=== PATIENT | female | born 1955 | race Hispanic/Latino ===

== ENCOUNTER 2021-09-18 14:17 | Emergency (ER) | payer OTHER ==
[2021-09-18] MEDS ORDERED: HYDROCODONE/APAP 10/325 TAB ONE (14:54)
--- NOTE | 2021-09-18 15:56 | RAD REPORT ---
EXAM DESCRIPTION: RAD - Forearm Left - 09/18/2021 3:11 pm CLINICAL HISTORY: PAIN COMPARISON: No comparisons FINDINGS/IMPRESSION: Impacted distal radial fracture with intra-articular extension. Dorsal displace ment of the distal fragment is noted with slight overriding. The fracture is mildly comminuted. Ulnar styloid fracture noted as well. No dislocation of the wrist.
[2021-09-18] MEDS ORDERED: KETOROLAC 30 MG/ML INJ ONE (17:12)
--- NOTE | 2021-09-18 17:24 | EDPHYS ---
Physician Documentation [facility] Name: Rosalva Rome Age: 65 yrs Sex: Female : 1955 Arrival Date: 09/18/2021 Time: 14:18 Bed 10 Private MD: ED Physician Philip Cameron HPI: 09/18 17:20 This 65 yrs old Female presents to ER via Ambulatory with complaints of Fall kb Injury, Wrist Injury. 17:20 Details of fall: The patient fell from an upright position, while walking. Onset: The kb symptoms/episode began/occurred today. Associated injuries: The patient sustained left wrist, decreased range of motion, deformity, painful injury, swelling. Severity of symptoms: At their worst the symptoms were moderate, in the emergency department the symptoms are unchanged. The patient has not experienced similar symptoms in the past. The patient has not recently seen a physician. 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 Reports pain to left wrist with swelling. Historical: - Allergies: 14:26 No Known Allergies; ll1 - PMHx: 14:26 Hypertensive disorder; ll1 - PSHx: 14:26 None; ll1 - Immunization history:: Client reports receiving the 2nd dose of the Covid vaccine. - Social history:: Smoking status: Patient denies any tobacco usage or history of. ROS: 17:19 Constitutional: Negative for fever, chills, and weight loss. kb 17:19 MS/extremity: Positive for injury or acute deformity, decreased range of motion, pain, swelling, tenderness, of the left wrist. 17:19 All other systems are negative. Exam: 17:19 Constitutional: This is a well developed, well nourished patient who is awake, alert, kb and in no acute distress. Head/Face: Normocephalic, atraumatic. ENT: Moist Mucous membranes Respiratory: Respirations even and unlabored. No increased work of breathing. Talking in full sentences Skin: Warm, dry with normal turgor. Normal color. Neuro: Awake and alert, GCS 15, oriented to person, place, time, and situation. Moves all extremities. Normal gait. Psych: Awake, alert, with orientation to person, place and time. Behavior, mood, and affect are within normal limits. 17:19 Musculoskeletal/extremity: Extremities: grossly normal except: noted in the left wrist: decreased ROM, deformity, pain, swelling, tenderness, ROM: limited active range of motion due to pain, in the left wrist, Circulation is intact in all extremities. Sensation intact. Vital Signs: 14:25 BP 155 / 93; Pulse 81; Resp 17; Temp 97.7; Pulse Ox 99% ; Weight 81.19 kg; Height 5 ft. ll1 2 in. (157.48 cm); Pain 10/10; 17:37 BP 128 / 63; Pulse 78; Resp 16; Pulse Ox 99% on R/A; ic1 14:25 Body Mass Index 32.74 (81.19 kg, 157.48 cm) ll1 [place] Coma Score: 14:49 Eye Response: spontaneous(4). Verbal Response: oriented(5). Motor Response: obeys ic1 commands(6). Total: 15. Trauma Score (Adult): 14:49 Eye Response: spontaneous(1); Verbal Response: oriented(1); Motor Response: obeys ic1 commands(2); Systolic BP: > 89 mm Hg(4); Respiratory Rate: 10 to 29 per min(4); [place] Score: 15; Trauma Score: 12 Procedures: 17:54 Splinting: Splint applied to left arm using Orthoglass splint, applied by nurse. kb Examined by me, post splint application: neurovascular intact, 2+ distal pulses palpable, brisk capillary refill noted, Patient tolerated well. MDM: 14:39 Patient medically screened. kb 17:12 Data reviewed: vital signs, nurses notes. Data interpreted: Pulse oximetry: on room air kb is 99 %. Interpretation: normal. Counseling: I had a detailed discussion with the patient and/or guardian regarding: the historical points, exam findings, and any diagnostic results supporting the discharge/admit diagnosis, radiology results, the need for outpatient follow up, a orthopedic surgeon, to return to the emergency department if symptoms worsen or persist or if there are any questions or concerns that arise at home. Physician consultation: Pratik Camacho MD was contacted at 17:12, regarding patient's condition, recommends splint and outpatient follow up . 17:18 ED course: Pt educated to call ortho on Tuesday to schedule appt for follow up. . kb 17:25 ED course: HEARING AID CONSULTANT aware reviewed. No active RX. kb 17:49 ED course: Neurovascular intact, moving all fingers. kb 09/18 14:38 Order name: Forearm Left XRAY; Complete Time: 16:00 kb 09/18 17:12 Order name: Sugar Tong Forearm Splint; Complete Time: 18:01 kb 09/18 17:12 Order name: Sling; Complete Time: 18:01 kb Administered Medications: 14:51 Drug: Elton (HYDROcodone-acetaminophen) 10 mg-325 mg 1 tabs Route: PO; ic1 15:41 Follow up: Response: Pain is decreased ic1 17:16 Drug: Ketorolac 60 mg Route: IM; Site: left gluteus; ic1 Disposition Summary: 09/18/21 17:23 Discharge Ordered Location: Home kb Condition: Stable kb Diagnosis - Impacted left radial fracture kb - Ulnar styloid fracture - left kb Followup: kb - With: Emergency Department - When: As needed - Reason: Worsening of condition Followup: kb - With: Private Physician - When: 2 - 3 days - Reason: Recheck today's complaints, Continuance of care, Re-evaluation by your physician Discharge Instructions: - Discharge Summary Sheet kb - Radial Fracture kb - Ulnar Fracture kb Forms: - Medication Reconciliation Form kb - Thank You Letter kb - Antibiotic Education kb - Prescription Opioid Use kb - Family Work Release eb Prescriptions: - Ibuprofen 800 mg Oral Tablet - take 1 tablet by ORAL route every 8 hours As needed take with food; 30 tablet; kb Refills: 0, Product Selection Permitted - Tylenol-Codeine #3 300 mg-30 mg Oral - take 1 tablet by ORAL route every 4-6 hours As needed; 15 tablet; Refills: 0, kb Product Selection Permitted Addendum: 09/20/2021 07:09 Co-signature as Attending Physician, Philip Cameron MD I agree with the assessment and c lozada plan of care. Signatures: Dispatcher [employer] Yoanna Zimmerman, LEAD MANUFACTURING ENGINEERING TECH-C LEAD MANUFACTURING ENGINEERING TECH-Philip Hubbard MD MD cha Lewis, Lynsay, RN RN ll1 Sheri Hodge RN RN ic1
--- NOTE | 2021-09-18 17:24 | ER ---
Nurse's Notes [facility] Name: Rosalva Rome Age: 65 yrs Sex: Female : 1955 Arrival Date: 09/18/2021 Time: 14:18 Bed 10 Private MD: Diagnosis: Impacted left radial fracture;Ulnar styloid fracture - left Presentation: 09/18 14:25 Chief complaint: Patient states: L FA deformity, s/p fall today. Coronavirus screen: ll1 Vaccine status: Patient reports receiving the 2nd dose of the covid vaccine. Client denies travel out of the [place] in the last 14 days. At this time, the client does not indicate any symptoms associated with coronavirus-19. Ebola Screen: Patient denies travel to an Ebola-affected area in the 21 days before illness onset. Initial Sepsis Screen: Does the patient meet any 2 criteria? No. Patient's initial sepsis screen is negative. Does the patient have a suspected source of infection? Yes: Bone or joint infection. Initial Sepsis Screen: Does the patient meet any 2 criteria?. Risk Assessment: Do you want to hurt yourself or someone else? Patient reports no desire to harm self or others. Onset of symptoms was September 18, 2021. 14:25 Method Of Arrival: Ambulatory ll1 14:25 Acuity: YOEL 3 ll1 Historical: - Allergies: 14:26 No Known Allergies; ll1 - PMHx: 14:26 Hypertensive disorder; ll1 - PSHx: 14:26 None; ll1 - Immunization history:: Client reports receiving the 2nd dose of the Covid vaccine. - Social history:: Smoking status: Patient denies any tobacco usage or history of. Screenin:49 Abuse screen: Denies threats or abuse. Denies injuries from another. Tuberculosis ic1 screening: No symptoms or risk factors identified. Fall risk At risk due to prior history of falls. Exposure risk/Travel Screening: None identified. Primary Survey: 14:49 NO uncontrolled hemorrhage observed. A: The patient is alert. Airway: patent. ic1 Breathing/Chest: Respiratory pattern: regular, Respiratory effort: spontaneous, unlabored, Chest inspection: symmetrical rise and fall of the chest. Circulation: Pulses: palpable right radial artery and left radial artery. Skin color: pink. Disability Alert. Exposure/Environment: There is no evidence of uncontrolled external bleeding. Obvious injury(ies) are noted at this time: L forearm deformity and swelling noted. Secondary Survey: 14:49 HEENT: No deficits noted. Gastrointestinal: No deficits noted. : No deficits noted. ic1 Musculoskeletal: No deficits noted. Assessment: 14:48 General: Appears in no apparent distress. uncomfortable, Behavior is calm, cooperative. ic1 Pain: Complains of pain in left arm. Neuro: No deficits noted. EENT: No deficits noted. Cardiovascular: No deficits noted. Respiratory: No deficits noted. GI: No deficits noted. : No deficits noted. Derm: No deficits noted. Musculoskeletal: Circulation, motion, and sensation intact. Capillary refill < 3 seconds, Range of motion: limited in left elbow and left wrist Swelling present in left arm Tenderness present in left arm. Vital Signs: 14:25 BP 155 / 93; Pulse 81; Resp 17; Temp 97.7; Pulse Ox 99% ; Weight 81.19 kg; Height 5 ft. ll1 2 in. (157.48 cm); Pain 10/10; 17:37 BP 128 / 63; Pulse 78; Resp 16; Pulse Ox 99% on R/A; ic1 14:25 Body Mass Index 32.74 (81.19 kg, 157.48 cm) ll1 [place] Coma Score: 14:49 Eye Response: spontaneous(4). Verbal Response: oriented(5). Motor Response: obeys ic1 commands(6). Total: 15. Trauma Score (Adult): 14:49 Eye Response: spontaneous(1); Verbal Response: oriented(1); Motor Response: obeys ic1 commands(2); Systolic BP: > 89 mm Hg(4); Respiratory Rate: 10 to 29 per min(4); [place] Score: 15; Trauma Score: 12 ED Course: 14:18 Patient arrived in ED. am2 14:26 Triage completed. ll1 14:26 Arm band placed on Patient placed in an exam room, on a stretcher. ll1 14:38 Yoanna Narvaez FNP-C [facility]. kb 14:38 Philip Cameron MD is Attending Physician. kb 14:49 Patient has correct armband on for positive identification. Bed in low position. Call ic1 light in reach. Adult w/ patient. 14:49 Patient maintains SpO2 saturation greater than 95% on room air. ic1 15:11 Forearm Left XRAY In Process Unspecified. EDMS 15:41 Sheri Hodge, RN is Primary Nurse. ic1 17:58 Orthoglass splint: Sugar tong splint applied on left arm. tolerated well. ll1 Administered Medications: 14:51 Drug: Oriska (HYDROcodone-acetaminophen) 10 mg-325 mg 1 tabs Route: PO; ic1 15:41 Follow up: Response: Pain is decreased ic1 17:16 Drug: Ketorolac 60 mg Route: IM; Site: left gluteus; ic1 Outcome: 17:23 Discharge ordered by . garima 18:02 Discharged to home ambulatory, with family. ic1 18:02 Condition: stable 18:02 Discharge instructions given to patient, family, Instructed on discharge instructions, follow up and referral plans. Demonstrated understanding of instructions, follow-up care, medications, Prescriptions given X 2. 18:03 Patient's length of stay in the Emergency Department was greater than 2 hours. ic1 Patient's length of stay was extended due to staffing issues within the emergency department. 18:03 Patient left the ED. ic1 Signatures: Dispatcher [employer] EDSD Yoanna Narvaez, DIRECT MARKETING COORDINATOR-C DIRECT MARKETING COORDINATOR-CkKeyonna Solorio am2 Eleanor Yun, RN RN ll1 Sheri Hodge, KIRILL RN ic1 Corrections: (The following items were deleted from the chart) 14:27 14:25 Pulse 81bpm; Resp 17bpm; Pulse Ox 99%; Temp 97.7F; 81.19 kg; Height 5 ft. 2 in.; ll1 BMI: 32.7; Pain 10/10; ll1
[2021-09-18 18:15] VITALS: TEMP 97.7; O2SAT 99
[2021-09-18 18:16] VITALS: BP 128/63
== END 2021-09-18 18:03 | disposition home or self-care (01) ==
LOC: ER 14:17
PROC: 2W3DX1Z Immobilization of Left Lower Arm using Splint (ICD-10-PCS; principal; 2021-09-18)
DX: S52.92XA Unspecified fracture of left forearm, initial encounter for closed fracture (principal); S52.612A Displaced fracture of left ulna styloid process, initial encounter for closed fracture; W01.0XXA Fall on same level from slipping, tripping and stumbling without subsequent striking against object, initial encounter; I10 Essential (primary) hypertension
CPT/HCPCS: 96372; 99284

== ENCOUNTER 2021-09-29 06:23 | Day surgery (SDC) | payer OTHER ==
[2021-09-25 12:17] LABS: Absolute Lymphocytes (CBC) 1.7 K/uL (0.7-4.9); Hematocrit 41.6 % (36.0-45.0); Lymphocytes % 30.5 % (15.3-44.8); RBC Red Blood Cell Count 4.86 M/uL (3.86-4.86)
[2021-09-28 09:42] LABS: BUN Blood Urea Nitrogen 15 mg/dL (7-18); Bicarbonate 22 mmol/L (21-32); Glucose Level 107 mg/dL (74-106); Potassium 3.9 mmol/L (3.5-5.1); Sodium Level 142 mmol/L (136-145)
[2021-09-29] MEDS ORDERED: Ringers Lactate 1,000 ML IV ONE ×2 (06:46→09:23)
[2021-09-29] MEDS ORDERED: CEFAZOLIN/NS 1gm 1 GM/50 ML BAG ONE (06:46)
[2021-09-29] MEDS ORDERED: FENTANYL CITR 100 MCG/2 ML ONE ×2 (07:10→10:14)
[2021-09-29] MEDS ORDERED: propofoL 200 MG/20 ML VIAL IV ONE (07:10)
[2021-09-29] MEDS ORDERED: MIDAZOLAM HCL 2 MG/2 ML INJ ONE (07:10)
[2021-09-29] MEDS ORDERED: dexAMETHasone 10 MG/ML VIAL ONE (07:11)
[2021-09-29] MEDS ORDERED: ONDANSETRON 4 MG/2 ML VIAL ONE (07:11)
[2021-09-29] MEDS ORDERED: KETOROLAC 30 MG/ML INJ ONE (07:11)
[2021-09-29] MEDS ORDERED: LIDOCAINE 1% MPF 30 ML VIAL ONE (07:11)
[2021-09-29] MEDS ORDERED: NS 0.9% VIAL 10 ML ONE (07:54)
[2021-09-29] MEDS ORDERED: KETAMINE HCL 500 MG/5 ML VIAL ONE (07:57)
[2021-09-29] MEDS: HYDROMORPHONE HCL 1 MG/ML INJ ONE ×4 (09:25→10:00)
[2021-09-29] MEDS ORDERED: PROMETHAZINE INJ 25 MG/ML AMP ONE (09:41)
[2021-09-29 09:49] VITALS: TEMP 97
--- NOTE | 2021-09-29 09:53 | RAD REPORT ---
EXAM DESCRIPTION: RAD - Fluoroscopy <1 Hour - 09/29/2021 9:36 am CLINICAL HISTORY: ORIF INTRA-ARTICULAR DISTAL RADIUS LEFT COMPARISON: No comparisons FINDINGS/IMPRESSION: Twenty intraoperative fluoroscopic images were submitted showing open reduction with plate and screw fixation of a known distal radial fracture. Dose: 1.36 charla Chauncye Fluoro time: 1 minutes
[2021-09-29 10:58] VITALS: BP 158/75; O2SAT 97
[2021-09-29] MEDS ORDERED: HYDROCODONE/APAP 7.5/325 MG TAB ONE (11:04)
--- NOTE | 2021-09-29 12:19 | OP ---
Date of Procedure: 09/29/2021 Surgeon: Pratik Camacho MD Preoperative Diagnosis: Left wrist comminuted intra-articular fracture of distal radius with median nerve paresthesias. Postoperative Diagnosis: Left wrist comminuted intra-articular fracture of distal radius with median nerve paresthesias. Procedures: 1.Left open reduction and internal fixation of comminuted intra-articular distal radius fracture wit h 3 intra-articular fragments. 2.Open carpal tunnel release. Estimated Blood Loss: Less than 10 cc. Complications: There were no complications. Pathology Specimen: No pathology specimen sent. Indications For Operation: Ms. Rome is a 65-year-old female, who unfortunately injured her left upper extremity. She saw me in my office sometime after she had fallen. X-rays demonstrated a comm inuted intra-articular highly displaced distal radius fracture. On physical examination, she had no sign of an open injury or pain at the elbow; however, she did have numbness and tingling of her long and ring fingers. She did have feeling with palpations, although she said that it felt that it was s leepy and somewhat tingly. Her thumb and index are not significantly involved. Therefore, decision was made not to move emergently, but moved emergently for this case and risks, benefits, and alternat alice of this procedure have been discussed with her. Also, we do have an external fixator available as well as other possible fixation in case this is not amenable to plate fixation. The patient agree s to proceed. Description Of Procedure: The patient was taken to the operating room and placed in supine position. General anesthesia was obtained by staff. Following this, a well-padded tourniquet was placed on s uperior left arm. The left upper extremity was then prepped and draped usual fashion procedure. Fol lowing this, the arm was then elevated, but not exsanguinated. Tourniquet was raised. A standard vo lar approach of incision was then taken down carefully through skin with only meticulous hemostasis b eing maintained using bipolar electrocautery. This leads down to the flexor carpi radialis, which wa s retracted radialward to protect the radial artery. Also seen, there was a much more prominent posi tion of the median nerve, which also appeared to be somewhat contused. It appeared to be lying direc tly upon a large fragment volar cortical bone, which had basically been flipped 90 degrees and also l ooked like it may have healed down to this slightly. Very very careful dissection was then used to r emove this cortical piece from the overlying soft tissues until it was mobile. Decision was made to take the flexor carpi radialis ulnarward to protect the median nerve and the remainder of the dissect ion is somewhat more radial than normal; however, care was taken not to injure the flexor pollicis lo ngus tendon. After this, the flat radial surface was encountered. The shredded pronator quadratus w as then removed off this area. This allows for rotation and reposition of the volar fragment, which fused in quite nicely. Unfortunately, the remainder of the wrist fracture still could be seen; howev er, this was dissected out with care being taken to preserve the radial ligaments. Then, combination of open and closed reduction techniques was then used to reapproximate the radius to near normal pos ition. This was followed by placement of the Acumed II volar radius plate. This was done in standar d fashion. It did appear to have good bone purchase with all the pegs. The wound was then irrigated and attention was then turned to the carpal tunnel. A standard open carpal tunnel release was then taken with care being taken to remove ulnarward at the most distal wrist crease establishing 2 incisi ons for these 2 different procedures and taken down carefully skin and soft tissues. Meticulous hemo stasis being maintained using bipolar electrocautery. This leads down to the palmar fascia, which wa s divided longitudinally. Any obstructions of the transverse carpal ligament were then gently swept to the side. Following this, the transcarpal ligament was then gently divided near its mid substance and the underlying carpal tunnel structures were countered. Combination of knife and scissors was t hen used to release from proximal to distal until there were no constricting bands. The same techniq ue was used in a distal to proximal direction until there were no constricting bands. Care being juan en to ensure that a blunt instrument can be used to ensure there were no constricting bands distally. After this, the median nerve was examined. It was definitely comminuting the region of the carpal tunnel. It appears to be fairly significantly abraded and contused at the region of the fracture; ho wever, it does appear to be in continuity. Decision was made not to further dissect some healing and soft tissues as this may cause further trauma to the median nerve and it has definitely been decompr essed and the impinging bone fragment has been reduced anatomically. The wound was then gently irrig ated and both wounds were closed. The patient was placed in a well-padded sterile dressing as well a s a sugar-tong splint. She was awakened and taken to recovery room in good condition. There were no complications. /ALEXA Voice ID: [id number] Report ID: [id number]
== END 2021-09-29 12:00 | disposition home or self-care (01) ==
LOC: OR 06:23
PROVIDERS: ATTEND Orthopaedic Surgery
PROC: 0PSJ04Z Reposition Left Radius with Internal Fixation Device, Open Approach (ICD-10-PCS; principal; 2021-09-29 07:30)
PROC: 01N50ZZ Release Median Nerve, Open Approach (ICD-10-PCS; 2021-09-29 07:30)
DX: S52.572A Other intraarticular fracture of lower end of left radius, initial encounter for closed fracture (principal); R20.2 Paresthesia of skin; Z20.822 Contact with and (suspected) exposure to COVID-19
CPT/HCPCS: 93005; 85025; 80048; 36415; 76000; 25609; 64721; U0003; J2704; J2550; J2250; J3010 ×2; J1100; J1170 ×2; J0690; J7120 ×2; J2405